=== PATIENT | female | born 1975 | race Caucasian/White ===

== ENCOUNTER → 2016-09-07 | Outpatient (CLI) | payer OTHER ==
--- NOTE | 2016-09-07 15:31 | XR ---
EXAMINATION TYPE: XR hand complete LT DATE OF EXAM: 09/07/2016 3:23 PM COMPARISON: NONE HISTORY: 41year-old female left hand crush injury across the fourth and fifth metacarpals and phalang es. TECHNIQUE: 3 views FINDINGS: No acute fracture, subluxation, or dislocation is identified. IMPRESSION: No acute osseous abnormality seen.
== END | disposition home or self-care (01) ==
LOC: RADXRMAIN 15:03
PROVIDERS: ATTEND Emergency Medicine
DX: S67.22XA Crushing injury of left hand, initial encounter (principal)

== ENCOUNTER → 2016-09-18 | Outpatient (CLI) | payer OTHER ==
--- NOTE | 2016-09-18 15:17 | XR ---
EXAMINATION TYPE: XR hand complete LT DATE OF EXAM: 09/18/2016 3:13 PM COMPARISON: NONE HISTORY: Crush injury left hand pain for base of fourth and fifth digits TECHNIQUE: 3 views left hand FINDINGS: No acute fractures are evident. Joint spaces are preserved. Soft tissues are unremarkable. IMPRESSION: 1. Normal three-view left hand
== END | disposition home or self-care (01) ==
LOC: RADXRMAIN 14:55
PROVIDERS: ATTEND Family Medicine
DX: S67.22XA Crushing injury of left hand, initial encounter (principal)

== ENCOUNTER 2018-10-29 18:13 | Emergency (ER) | payer OTHER ==
[2018-10-29 19:11] VITALS: BP 140/83; PULSE 92; RESP 18; TEMP 98.6
--- NOTE | 2018-10-29 19:13 | ED ---
General Adult HPI - General Chief complaint: Extremity Injury, Lower Stated complaint: [facility] - rt ankle injury Time Seen by Provider: 10/29/18 18:30 Source: patient, RN notes reviewed Mode of arrival: ambulatory - History of Present Illness Initial comments: 43-year-old female presents to the emergency department for a chief complaint of right ankle pain times one day. 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 She states she suddenly felt a pop on the lateral aspect of her right ankle. She states it is painful to bear weight. She denies falling or hitting her head. Denies any other injuries. Patient has no other complaints at this time including shortness of breath, chest pain, abdominal pain, nausea or vomiting, headache, or visual changes. - Related Data Allergies Allergy/AdvReac Type Severity Reaction Status Date / Time aspirin AdvReac Unknown Verified 10/29/18 19:11 codeine AdvReac Unknown Verified 10/29/18 19:11 Review of Systems ROS Statement: Those systems with pertinent positive or pertinent negative responses have been documented in the HPI. ROS Other: All systems not noted in ROS Statement are negative. Past Medical History Past Medical History: No Reported History History of Any Multi-Drug Resistant Organisms: None Reported Past Surgical History: Tonsillectomy Additional Past Surgical History / Comment(s): 2 d&c's, wisdom teeth extraction Past Psychological History: No Psychological Hx Reported Smoking Status: Never smoker Past Alcohol Use History: Rare Past Drug Use History: None Reported General Exam General appearance: alert, in no apparent distress Head exam: Present: atraumatic, normocephalic, normal inspection Eye exam: Present: normal appearance, PERRL, EOMI. Absent: scleral icterus, conjunctival injection, periorbital swelling ENT exam: Present: normal exam, mucous membranes moist Neck exam: Present: normal inspection, full ROM. Absent: tenderness, meningismus, lymphadenopathy Respiratory exam: Present: normal lung sounds bilaterally. Absent: respiratory distress, wheezes, rales, rhonchi, stridor Cardiovascular Exam: Present: regular rate, normal rhythm, normal heart sounds. Absent: systolic murmur, diastolic murmur, rubs, gallop, clicks Extremities exam: Present: tenderness (Redness noted just inferior to the lateral malleolus of the right ankle), normal capillary refill (Capillary refill less than 2 seconds, DP pulse 2+ in the right lower extremity), joint swelling (She does have minimal edema noted over the right lateral malleolus), other (Sensation intact in the right lower extremity). Absent: full ROM ( Patient has full dorsiflexion with about 20 plantar flexion of the right ankle) Neurological exam: Present: alert, oriented X3, CN II-XII intact Psychiatric exam: Present: normal affect, normal mood Course Vital Signs 10/29/18 19:08 Temperature 98.6 F Pulse Rate 92 Respiratory 18 Rate Blood Pressure 140/83 O2 Sat by Pulse 100 Oximetry Medical Decision Making - Medical Decision Making 43-year-old female presents to the emergency department for a chief complaint of right ankle pain occurring today at work. 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 Patient states she was standing in place when this happened and she felt a pop in the lateral aspect of the right ankle. States it is painful to ambulate on. On exam patient does have some edema noted over the right lateral malleolus. Neurovascular intact. X-ray of the right foot and ankle are negative. Likely a sprain. Patient was given a brace as well as prescription for crutches. Will follow up with orthopedics in 1-2 days and return if she has any worsening symptoms. Disposition Clinical Impression: Ankle pain, right Disposition: HOME SELF-CARE Condition: Good Instructions (If sedation given, give patient instructions): Ankle Sprain (ED) Additional Instructions: Please take Motrin and Tylenol for pain. Rest ice and elevate the right ankle. Use splint as needed. Use crutches as needed. Follow-up with orthopedics in one to 2 days. Return if you have any worsening symptoms. Is patient prescribed a controlled substance at d/c from ED?: No Referrals: Naresh Smith MD [Primary Care Provider] - 1-2 days Chandu Escoto MD [STAFF PHYSICIAN] - 1-2 days Time of Disposition: 19:27
--- NOTE | 2018-10-29 20:08 | XR ---
PROCEDURE: XR ankle complete RT - 3V DATE AND TIME: 10/29/2018 7:33 PM CLINICAL INDICATION: [facility]; Pain after injury TECHNIQUE: Department protocol COMPARISON: None FINDINGS: There is no fracture or malalignment. The soft tissues are unremarkable. IMPRESSION: NO ACUTE PROCESS.
--- NOTE | 2018-10-29 20:12 | XR ---
PROCEDURE: XR foot complete RT - 3V DATE AND TIME: 10/29/2018 7:33 PM CLINICAL INDICATION: [facility]; Pain TECHNIQUE: Department protocol COMPARISON: None FINDINGS: There is no fracture or malalignment. The soft tissues are unremarkable. IMPRESSION: NO ACUTE PROCESS.
== END 2018-10-29 20:38 | disposition home or self-care (01) ==
LOC: EC 18:13
DX: M25.571 Pain in right ankle and joints of right foot (principal); R60.0 Localized edema; Z88.6 Allergy status to analgesic agent; Z88.5 Allergy status to narcotic agent
CPT/HCPCS: 99283; 73610; 73630; L4350

== ENCOUNTER → 2018-11-06 | Outpatient (CLI) | payer OTHER ==
--- NOTE | 2018-11-06 17:34 | XR ---
EXAMINATION TYPE: XR ankle complete RT DATE OF EXAM: 11/06/2018 COMPARISON: NONE HISTORY: Pain TECHNIQUE: 3 views FINDINGS: There is a plantar calcaneal spur. Ankle mortise is anatomic. I see no fracture. Joint spac es are fairly normal. IMPRESSION: Calcaneal spurring. No fracture seen.
== END ==
LOC: RADXRMAIN 16:48
PROVIDERS: ATTEND Emergency Medicine
DX: M77.31 Calcaneal spur, right foot (principal)

== ENCOUNTER → 2018-11-09 | Outpatient (CLI) | payer OTHER ==
--- NOTE | 2018-11-09 16:15 | MR ---
EXAMINATION TYPE: MR ankle RT wo con DATE OF EXAM: 11/09/2018 COMPARISON: None HISTORY: Rt ankle sprain/swelling 3 weeks ago Standard multiplanar, multisequence MRI departmental protocol Multiplanar, multisequence images of the right ankle were acquired. FINDINGS: The ankle mortise is anatomic. The collateral ligaments appear intact. The medial and later al flexor tendons of the ankle appear intact. Achilles tendon appears intact. Plantar fascia appears normal. There is mild ankle joint effusion. Proximal metatarsals appear intact. Tarsal bones are inta ct. There is no evidence of a fracture. There is no sign of soft tissue mass. IMPRESSION: Mild ankle joint effusion. No fracture seen. No evidence of ligament or tendon tear.
== END ==
LOC: RADMRIMAIN 14:04
PROVIDERS: ATTEND Emergency Medicine
DX: M25.471 Effusion, right ankle (principal)

== ENCOUNTER 2020-07-03 08:46 | Emergency (ER) | payer OTHER ==
[2020-07-03 08:57] VITALS: BP 166/96; PULSE 85; RESP 18; TEMP 100.3
--- NOTE | 2020-07-03 09:24 | ED ---
URI HPI - General Chief Complaint: Upper Respiratory Infection Stated Complaint: Covid symptoms Time Seen by Provider: 07/03/20 08:59 Source: patient, RN notes reviewed Mode of arrival: ambulatory Limitations: no limitations - History of Present Illness Initial Comments: This a 45-year-old female presents to the emergency Department for Covid testing. Patient states that they had a household family member test positive last night and was hospitalized. She has no major complaints mild URI symptoms. Denies any chest pain, shortness breath, headache, dizziness, nausea vomiting diarrhea constipation. No significant past medical history - Related Data Allergies Allergy/AdvReac Type Severity Reaction Status Date / Time aspirin AdvReac Unknown Verified 07/03/20 08:57 codeine AdvReac Unknown Verified 07/03/20 08:57 Review of Systems ROS Statement: Those systems with pertinent positive or pertinent negative responses have been documented in the HPI. ROS Other: All systems not noted in ROS Statement are negative. Past Medical History Past Medical History: No Reported History History of Any Multi-Drug Resistant Organisms: None Reported Past Surgical History: Tonsillectomy Additional Past Surgical History / Comment(s): 2 d&c's, wisdom teeth extraction Past Psychological History: No Psychological Hx Reported Smoking Status: Never smoker Past Alcohol Use History: Rare Past Drug Use History: None Reported General Exam Limitations: no limitations General appearance: alert, in no apparent distress Head exam: Present: atraumatic, normocephalic, normal inspection Eye exam: Present: normal appearance, PERRL, EOMI. Absent: scleral icterus, conjunctival injection, periorbital swelling ENT exam: Present: normal exam, normal oropharynx, mucous membranes moist, TM's normal bilaterally Neck exam: Present: normal inspection, full ROM. Absent: tenderness, meningismus, lymphadenopathy Respiratory exam: Present: normal lung sounds bilaterally. Absent: respiratory distress, wheezes, rales, rhonchi, stridor Cardiovascular Exam: Present: regular rate, normal rhythm, normal heart sounds. Absent: systolic murmur, diastolic murmur, rubs, gallop, clicks Course Vital Signs 07/03/20 08:54 Temperature 100.3 F H Pulse Rate 85 Respiratory 18 Rate Blood Pressure 166/96 O2 Sat by Pulse 100 Oximetry Medical Decision Making - Medical Decision Making Patient presented for Covid testing pending results. Patient is advised to self quarantined as they have a known positive in the household. Disposition Clinical Impression: Encounter for laboratory testing for COVID-19 virus Disposition: HOME SELF-CARE Condition: Stable Additional Instructions: Please self quarantine for 14 days. Please return to the Emergency Department if symptoms worsen or any other concerns. Is patient prescribed a controlled substance at d/c from ED?: No Referrals: Naresh Smith MD [Primary Care Provider] - 1-2 days Time of Disposition: 09:23
== END 2020-07-03 10:25 | disposition home or self-care (01) ==
LOC: EC 08:46
DX: U07.1 COVID-19 (principal); Z88.5 Allergy status to narcotic agent; Z88.6 Allergy status to analgesic agent
CPT/HCPCS: 87635; 99283

== ENCOUNTER → 2021-07-11 | Outpatient (CLI) | payer OTHER ==
--- NOTE | 2021-07-11 11:26 | XR ---
EXAMINATION TYPE: XR shoulder complete 3 views RT, XR hand complete 3 views LT, XR Hip 2 views LT DATE OF EXAM: 07/11/2021 Comparison: None Clinical History: 46-year-old female S70.02XA, S60.222A, S43.401A Findings: Right shoulder: Mild degenerative change at the AC joint. Subacromial space is observed. Smooth delineation to the gr eater tuberosity. No acute fracture, subluxation, or dislocation. Left hand: Minimal degenerative spurring at the first CMC joint. No acute fracture, subluxation, dislocation. Left hip: Pelvic phleboliths. No acute fracture, subluxation, or dislocation. Mild marginal spurring at the lef t hip. IMPRESSION: 1. Right shoulder: Mild AC joint joint. No acute osseous abnormality seen. 2. Left hand: No acute osseous abnormality seen. 3. Left hip: No acute osseous abnormality seen.
== END | disposition home or self-care (01) ==
LOC: RADXRMAIN 10:57
PROVIDERS: ATTEND Emergency Medicine
DX: S70.02XA Contusion of left hip, initial encounter (principal); S60.222A Contusion of left hand, initial encounter; S43.401A Unspecified sprain of right shoulder joint, initial encounter; X58.XXXA Exposure to other specified factors, initial encounter
CPT/HCPCS: 73501

== ENCOUNTER → 2021-07-13 | Outpatient (CLI) | payer OTHER ==
--- NOTE | 2021-07-13 17:39 | XR ---
EXAMINATION TYPE: XR lumbar spine 2 or 3V DATE OF EXAM: 07/13/2021 CLINICAL HISTORY: Fall 2 days ago. Pain. TECHNIQUE: Frontal and lateral images of the lumbar spine are obtained. COMPARISON: 07/14/2014 FINDINGS: There are 5 lumbar type vertebral bodies identified. The lumbar spine shows satisfactory alignment without evidence of acute fracture or subluxation. Vertebral body heights are within normal limits. No significant disc space narrowing. No spondylolisthesis. There is facet arthropathy worst at L4-L5 and L5-S1 bilaterally. The overlying soft tissue appears unremarkable. IMPRESSION: No acute fracture or subluxation is seen in the lumbar spine.
--- NOTE | 2021-07-13 17:40 | XR ---
EXAMINATION TYPE: XR thoracic spine complete DATE OF EXAM: 07/13/2021 CLINICAL HISTORY: Fall with mid back pain. TECHNIQUE: Frontal, lateral, and swimmer's view of thoracic spine are obtained. COMPARISON: None. FINDINGS: Thoracic spine show satisfactory alignment without evidence of acute fracture or dislocatio n. Vertebral body heights and disc space heights are preserved. Degenerative spurring of the endplat es. Visualized ribs are unremarkable. IMPRESSION: No acute fracture or subluxation is seen in the thoracic spine.
== END | disposition home or self-care (01) ==
LOC: RADXRMAIN 16:56
PROVIDERS: ATTEND Emergency Medicine
DX: S29.012A Strain of muscle and tendon of back wall of thorax, initial encounter (principal); X58.XXXA Exposure to other specified factors, initial encounter
CPT/HCPCS: 72072; 72100

== ENCOUNTER → 2021-09-30 | Outpatient (CLI) | payer OTHER ==
--- NOTE | 2021-10-01 08:05 | MR ---
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 FINDINGS: Sagittal images of the lumbar spine show vertebral body heights and alignment to appear sat isfactory. The intervertebral discs demonstrate multilevel disc desiccation. And disc space heights a re maintained. The conus medullaris is normal in position and signal ending at L1 level. 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 Axial images show T12-L1, L1-L2, and L2-L3 levels all to appear within normal limits. Axial images at L3-L4 and L4-L5 levels show mild facet degenerative changes bilaterally. Spinal canal is preserved. Bilateral Neural foramina are patent. Axial images at L5-S1 level show moderate facet degenerative changes bilaterally. Patent spinal canal and bilateral neural foramina. Paraspinal muscle bulk is maintained. 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
== END | disposition home or self-care (01) ==
LOC: RADMRIMAIN 21:18
PROVIDERS: ATTEND Emergency Medicine
DX: M47.896 Other spondylosis, lumbar region (principal); S29.012D Strain of muscle and tendon of back wall of thorax, subsequent encounter; S70.02XD Contusion of left hip, subsequent encounter; S60.222D Contusion of left hand, subsequent encounter; S43.401D Unspecified sprain of right shoulder joint, subsequent encounter; X58.XXXD Exposure to other specified factors, subsequent encounter
CPT/HCPCS: 72148

== ENCOUNTER → 2023-08-23 | Outpatient (CLI) | payer OTHER ==
--- NOTE | 2023-08-23 12:43 | XR ---
EXAMINATION TYPE: XR thoracic spine complete DATE OF EXAM: 08/23/2023 12:27 PM CLINICAL INDICATION:Female, 48 years old with history of S23.3XXD Sprain ligaments/TSPINE; [facility] COMPARISON: None TECHNIQUE: XR thoracic spine complete views of the thoracic spine in Frontal and lateral projections. FINDINGS: No evidence of acute fracture. There is scattered multilevel disk space narrowing without loss of ve rtebral body height. There is normal alignment of the thoracic vertebral bodies. Scattered osteophyte formation along the anterior and lateral aspects of the vertebral bodies. Neural foramen are patent given limitations of this exam. Spinal canal appears patent. IMPRESSION: Mild multilevel degeneration changes. No acute osseous pathology.
== END | disposition home or self-care (01) ==
LOC: RADXRMAIN 12:14
PROVIDERS: ATTEND Emergency Medicine
DX: S23.3XXD Sprain of ligaments of thoracic spine, subsequent encounter (principal); M47.814 Spondylosis without myelopathy or radiculopathy, thoracic region
CPT/HCPCS: 72072